=== PATIENT | female | born 1980 | race Caucasian/White ===

== ENCOUNTER 2020-06-17 03:34 | Emergency (ER) | payer OTHER ==
[~2020-06-17] VITALS: Ht 162.6 cm; Wt 68.0 kg
[~2020-06-17 03:34] MED LIST: BENTYL10 MG PO; NUVARING VAGIN1 EACH VG; PANTOPRAZOLE SO40 MG PO; VESICARE10 MG PO; VITAMIN D35000 UNIT PO
[2020-06-17] MEDS ORDERED: SODIUM CHLORIDE 0.9% 1000ML 1,000 ML IV STA (03:56)
[2020-06-17] MEDS ORDERED: KETOROLAC TROMETHAMINE 30 MG/ML VIAL IV ONE (04:00)
[2020-06-17] MEDS ORDERED: PROMETHAZINE 25MG/ NS 50ML (IV) IV ONE ×2 (04:00→06:00)
[2020-06-17] MEDS ORDERED: DIPHENHYDRAMINE HCL INJ 50 MG/ML VIAL IV ONE ×2 (04:00→06:00)
[2020-06-17] MEDS ORDERED: ACETAMINOPHEN 325 MG TAB PO ONE (04:00)
[2020-06-17] MEDS ORDERED: DEXAMETHASONE SOD PHOS INJ 4 MG/ML VIAL IV ONE (04:15)
[2020-06-17] MEDS ORDERED: DEXAMETHASONE SOD PHOS INJ 4 MG/ML VIAL ONE (04:20)
[2020-06-17] MEDS ORDERED: KETOROLAC TROMETHAMINE 30 MG/ML VIAL ONE (04:20)
[2020-06-17] MEDS ORDERED: PROMETHAZINE HCL (IM) 25 MG/ML VIAL IM ONE ×2 (04:20→06:01)
[2020-06-17] MEDS ORDERED: DIPHENHYDRAMINE HCL INJ 50 MG/ML VIAL ONE ×2 (04:20→06:01)
[2020-06-17] MEDS ORDERED: SODIUM CHLORIDE 0.9% 50ML 50 ML ONE ×2 (04:21→06:01)
[2020-06-17] MEDS ORDERED: SODIUM CHLORIDE 0.9% 1000ML 1,000 ML ONE (04:21)
[2020-06-17] MEDS ORDERED: ACETAMINOPHEN 325 MG TAB ONE (04:21)
[2020-06-17] MEDS ORDERED: PREDNISONE10 MG PO (05:30)
[2020-06-17] MEDS ORDERED: ZOFRAN4 MG PO (05:30)
[2020-06-17] MEDS ORDERED: ESGIC 50-325-41 EACH PO (05:30)
[2020-06-17] MEDS ORDERED: FAMOTIDINE 20 MG/2 ML VIAL IV ONE ×2 (06:00→06:01)
== END 2020-06-17 06:57 | disposition home or self-care (01) ==
LOC: FSED 03:55
DX: G44.009 Cluster headache syndrome, unspecified, not intractable (principal); R21 Rash and other nonspecific skin eruption; G50.0 Trigeminal neuralgia
CPT/HCPCS: 36415; 70450; 80053; 81003; 85025; 85651; 96374; 96375; 96376; 99284; J1100; J1200; J1885; J2550; J7030

== ENCOUNTER → 2020-10-30 | Outpatient (CLI) | payer OTHER ==
[~2020-10-30] MED LIST changes: +ESGIC 50-325-41 EACH PO; +IOPAMIDOL 370 MG/ML 200 ML INFUS..BTL INJ ONE; +METOPROLOL TARTRATE 25 MG TAB ONE; +NITROGLYCERIN 0.4 MG SUBL ONE; +PREDNISONE10 MG PO; +SODIUM CHLORIDE 0.9% 100 ML ONE; +ZOFRAN4 MG PO
== END ==
LOC: CT 08:13
PROVIDERS: ATTEND Internal Medicine
DX: R07.9 Chest pain, unspecified (principal)
CPT/HCPCS: 75574; J7050; Q9967

== ENCOUNTER → 2021-02-07 | Outpatient (CLI) | payer OTHER ==
[~2021-02-07] MED LIST changes: -IOPAMIDOL 370 MG/ML 200 ML INFUS..BTL INJ ONE; -METOPROLOL TARTRATE 25 MG TAB ONE; -NITROGLYCERIN 0.4 MG SUBL ONE; -SODIUM CHLORIDE 0.9% 100 ML ONE
== END ==
LOC: RAD 09:09
PROVIDERS: ATTEND Internal Medicine
DX: Z01.818 Encounter for other preprocedural examination (principal)
CPT/HCPCS: 71046

== ENCOUNTER → 2024-06-06 | Outpatient (REF) | payer OTHER | LOC: RAD 14:02 | PROVIDERS: ATTEND Internal Medicine | DX: Z01.818 Encounter for other preprocedural examination (principal) | CPT/HCPCS: 93005 ==